=== PATIENT | female | born 1950 | race Caucasian/White ===

== ENCOUNTER 2020-06-01 10:00 | Observation (INO) ==
[2020-06-01 10:23] LABS: Hematocrit 43.7 % (35.3-44.9); Mean Corpuscular HGB Conc 34.3 g/dL (31.6-35.5); Mean Corpuscular Hemoglobin 31.8 pg (28.0-33.3); Mean Corpuscular Volume 92.8 fL (83.0-100.0); Mean Platelet Volume 9.8 fL (9.4-12.4); Platelet Count 221 K/mcL (140-400); Red Blood Count 4.71 M/mcL (3.82-4.97); Red Cell Distribution Width 13.8 % (11.5-14.5); White Blood Count 10.3 K/mcL (4.3-11.1)
[2020-06-01 10:25] LABS: Prothrombin Time 11.1 Seconds (9.4-12.1)
[2020-06-01 10:27] LABS: Activated Partial Thrombo Time 31.3 Seconds (26.0-36.0)
[2020-06-01 10:47] LABS: BUN/Creatinine Ratio 12 (6-26); Blood Urea Nitrogen 7 mg/dL (8-23); Calcium 8.6 mg/dL (8.6-10.3); Carbon Dioxide 23 mEq/L (23-29); Chloride 102 mEq/L (98-107); Glucose 146 mg/dL (70-105); Osmolality,Calculated 281 (280-300); Potassium 4.2 mEq/L (3.5-5.1); Sodium 135 mEq/L (136-145); Troponin I < 0.03 ng/mL (< 0.04); eGFR For African Americans > 60 (> 60); eGFR For Non-African Americans > 60 (> 60)
[2020-06-01] MEDS ORDERED: Aspirin 81 MG TAB.CHEW PO STA (11:06)
[2020-06-01] MEDS ORDERED: Isovue-370 500 ML BOTTLE IVP ONE (11:07)
[2020-06-01] MEDS ORDERED: Gadolinium Contrast Agent (WT Based) IV PRN ×2 (11:10→14:31)
[2020-06-01] MEDS ORDERED: Naloxone 0.4 MG/ML INJ IVP PRN (14:13)
[2020-06-01] MEDS ORDERED: Dextrose Gel 15 GM/37.5 ML TUBE PO PRN ×2 (14:16)
[2020-06-01] MEDS ORDERED: D5% in Water 1,000 ML IVC PRN (14:16)
[2020-06-01] MEDS ORDERED: *HR* Dextrose 50 % in Water (Vial) 50 ML VIAL IVP PRN (14:16)
[2020-06-01] MEDS ORDERED: Perflutren Lipid Microsphere 1.3 ML in 0.9 % Sodium Chloride 8.7 ML IVP PRN (15:20)
[2020-06-01 15:35] LABS: Estimated Average Glucose 134 mg/dl
[2020-06-01] MEDS ORDERED: Latanoprost 2.5 ML BOTTLE LEFT EYE SCH (21:00)
[2020-06-01] MEDS ORDERED: Insulin LISPRO 300 UNITS/3 ML VIAL SQ SCH (21:00)
[2020-06-01] MEDS ORDERED: Brinzolamide 1% 10 ML BOTTLE LEFT EYE SCH (21:00)
[2020-06-01] MEDS: 0.9 % Sodium Chloride 1,000 ML IVC SCH (22:24)
[2020-06-01] MEDS: Insulin LISPRO 300 UNITS/3 ML VIAL SQ SCH (22:24)
[2020-06-01] MEDS ORDERED: *HR* LORazepam 2 MG/ML VIAL IVP ONE (22:36)
[2020-06-02 03:21] LABS: Chol/HDL Ratio 2.8 (0-4.9)
[2020-06-02 03:23] LABS: Alanine Aminotransferase 18 Units/L (7-52); Albumin/Globulin Ratio 1.6 (1.1-2.2); Alkaline Phosphatase 86 Units/L (34-104); Aspartate Amino Transferase 15 Units/L (13-39); BUN/Creatinine Ratio 20 (6-26); Bilirubin,Total 0.4 mg/dL (0.3-1.0); Blood Urea Nitrogen 14 mg/dL (8-23); Calcium 8.6 mg/dL (8.6-10.3); Carbon Dioxide 27 mEq/L (23-29); Chloride 101 mEq/L (98-107); Globulin 2.5 g/dL (2.4-3.5); Glucose 110 mg/dL (70-105); Magnesium 1.8 mg/dL (1.6-2.6); Osmolality,Calculated 281 (280-300); Potassium 3.9 mEq/L (3.5-5.1); Sodium 135 mEq/L (136-145); Total Protein 6.5 g/dL (6.4-8.9); eGFR For African Americans > 60 (> 60); eGFR For Non-African Americans > 60 (> 60)
[2020-06-02] MEDS: Insulin LISPRO 300 UNITS/3 ML VIAL SQ SCH (08:03)
[2020-06-02] MEDS ORDERED: Aspirin 325 MG TABLET PO SCH (09:00)
[2020-06-02] MEDS ORDERED: *HR* LORazepam 0.5 MG TABLET PO SCH (09:00)
[2020-06-02] MEDS ORDERED: Thiamine (B-1) 100 MG TABLET PO SCH (09:00)
[2020-06-02] MEDS ORDERED: Folic Acid 1 MG TABLET PO SCH (09:00)
[2020-06-02 10:49] VITALS: BP 121/74
[2020-06-02] MEDS: 0.9 % Sodium Chloride 1,000 ML IVC SCH (11:22)
[2020-06-04 15:58] LABS: Angiotensin Converting Enzyme 12 U/L (9-67)
== END 2020-06-02 12:00 | disposition home or self-care (01) ==
LOC: EMEROOARM 10:00 → 3BNU 10:00 → SUATTDRO 15:39 → 3BNU 16:05
PROVIDERS: ADMIT Internal Medicine; ATTEND Internal Medicine